=== PATIENT | male | born 1975 | race Caucasian/White ===

== ENCOUNTER 2017-02-20 06:06 | Observation (INO) | payer BC, OTHER ==
[~2017-02-20] VITALS: Ht 182.9 cm; Wt 65.4 kg
--- NOTE | ~2017-02-20 | H ---
[facility] [place] [address] HISTORY AND PHYSICAL Name: BLAIR ZABALA Room #: 431-P [facility] MKristi.#: [id number] Admission: 02/20/17 Attend Phys: Lisandro Krishnan MD Discharge: Date of : 77 Report #: [id number] THIS REPORT FOR: //name// CC: Lisandro De Leon DATE OF SERVICE: 02/20/2017 REASON FOR ADMISSION: Left flank pain. HISTORY OF PRESENT ILLNESS: The patient is a 41-year-old gentleman admitted with sudden onset left flank pain starting this morning, which awoke from sleep, radiating to his left groin. He has also had some mild associated nausea. He has really had no other symptoms associated with this. No hematuria. He denies skin rashes, diarrhea, chest pain, shortness of breath, headaches or other problems at this time. He is noted in the Emergency Room to have a large left-sided ureteral calculus and is being admitted for treatment of the same. PAST MEDICAL HISTORY: None reported. PAST SURGICAL HISTORY: None reported. ALLERGIES: Reported to FLEXERIL. MEDICATIONS: At home include diazepam p.r.n., fentanyl patch every 3 days and Wellbutrin. SOCIAL HISTORY: Active smoker 1 pack a day, intermittent social alcohol use, denies any drug use. 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 FAMILY HISTORY: Father had pancreatic cancer. Grandmother had breast cancer. Grandfather had Alzheimer disease. REVIEW OF SYSTEMS: Twelve-point review of systems performed, negative except as mentioned in history of present illness. PHYSICAL EXAMINATION: VITAL SIGNS: Afebrile, pulse 75, respiration rate of 14, O2 sat 97 on room air, blood pressure is 102/60. GENERAL: Awake, alert, in no acute distress. HEENT: Unremarkable. NECK: No JVD or thyromegaly. CARDIOVASCULAR: S1, S2 present. Regular present bilaterally. ABDOMEN: Soft, tender to palpation over the left flank. NEUROLOGICAL: Awake and alert times 3. SKIN: Unremarkable. No rash or lesions. [address] [address] HISTORY AND PHYSICAL Name: BLAIR ZABALA Room #: 431-P [facility] M.R.#: [id number] Admission: 02/20/17 Attend Phys: Lisandro Krishnan MD Discharge: Date of : 77 Report #: [id number] LABORATORY AND INVESTIGATIONS: Without concerning abnormalities. BRIEF INPATIENT COURSE: The patient is a 41-year-old gentleman admitted with left flank pain and noted to have a 6.5 mm obstructing proximal ureteric stone on the left with associated hydronephrosis. He has been assessed by Urology with plans for lithotripsy, possibly in the a.m. versus home discharge with outpatient followup for lithotripsy based on pain control. PLAN: At the present time, we will continue IV fluid hydration and attempt pain medications as able and assess his progress. DVT prophylaxis only with SCDs for the present in light of planned procedures. <ELECTRONICALLY SIGNED> By: Lisandro Krishnan MD 02/20/17 1347 1152 1215 Lisandro Krishnan MD /nt
[~2017-02-20 06:06] MED LIST: NOHOMEMEDICATIONS
[2017-02-20 06:07] VITALS: BP 125/84
[2017-02-20] MEDS ORDERED: FENTANYL PA12 MCG/H1 TP (06:25)
[2017-02-20] MEDS ORDERED: WELLBUTRIN SR150 MG PO (06:25)
[2017-02-20] MEDS ORDERED: VALIUM5 MG PO (06:25)
[2017-02-20 06:35] LABS: ABSOLUTE NEUTROPHILS 6.3 thou/uL (1.4-8.2); EOSINOPHILS 4.1 % (0.0-3.0); HEMATOCRIT 44.1 % (42.0-52.0); HEMOGLOBIN 14.9 gm/dL (14.0-18.0); MCH 30.3 pg (26.0-34.0); MCHC 33.8 g/dL (28.0-37.0); MCV 89.6 fL (80.0-100.0); MONOCYTES 8.3 % (1.0-8.0); PLATELET COUNT 241 thou/uL (150-400); POLYS 54.6 % (36.0-66.0); RBC 4.93 mil/uL (4.50-6.00); RDW 13.5 % (10.5-14.5); WBC 11.5 thou/uL (4.0-11.0)
[2017-02-20 06:41] LABS: MANUAL DIFF NO
[2017-02-20 06:45] LABS: CALCIUM 9.2 mg/dL (8.5-10.1); POTASSIUM 4.1 mmol/L (3.5-5.1)
[2017-02-20 06:50] LABS: ALBUMIN 3.9 g/dL (3.4-5.0); DIRECT BILIRUBIN 0.1 mg/dL (<0.1-0.3); TOTAL BILIRUBIN 0.6 mg/dL (<0.1-1.0)
[2017-02-20 08:39] VITALS: BP 110/69
[2017-02-20 08:52] LABS: URINE BILIRUBIN NEGATIVE (Negative); URINE BLOOD 3+ (Negative); URINE COLOR YELLOW; URINE GLUCOSE-RANDOM* NEGATIVE (Negative); URINE KETONES NEGATIVE (Negative); URINE NITRITE NEGATIVE (Negative); URINE PROTEIN (DIPSTICK) NEGATIVE (Negative); URINE SPECIFIC GRAVITY 1.025 (1.003-1.035); URINE UROBILINOGEN 0.2 E.U./dl (0.2-1.0)
[2017-02-20 09:15] LABS: CASTS None Seen /LPF (None Seen); CRYSTALS None Seen /LPF (None Seen); SQUAMOUS 0-3 Few /LPF (0-3)
[2017-02-20 09:16] VITALS: BP 102/60
[2017-02-20 09:16] LABS: BACTERIA 1-9 Few /HPF (None Seen); URINE RBC >20 Many /HPF (0-2); URINE WBC 0-5 Rare /HPF (0-5)
[2017-02-20] MEDS ORDERED: DILAUDID 2 MG TA2 MG PO (12:38)
[2017-02-20 16:15] VITALS: BP 108/70
[2017-02-20] MEDS ORDERED: ONDANSETRON HCL4 M2 PO (16:44)
[2017-02-20] MEDS ORDERED: FLOMAX0.4 MG PO (16:44)
[2017-02-20 17:27] VITALS: BP 108/70
[2017-02-20 18:13] VITALS: BP 108/70
[2017-02-22] MEDS ORDERED: LEVAQUIN 500 M500 M1 PO (14:33)
== END 2017-02-20 18:19 | disposition home or self-care (01) ==
LOC: ER 06:06 → EROBS 07:56 → 4E 07:56
PROVIDERS: Emergency Medicine
DX: N13.2 Hydronephrosis with renal and ureteral calculous obstruction (principal); D72.829 Elevated white blood cell count, unspecified; R11.0 Nausea; Z72.89 Other problems related to lifestyle; Z87.891 Personal history of nicotine dependence

== ENCOUNTER 2020-04-03 11:24 | Emergency (ER) | payer BC, OTHER ==
[~2020-04-03] VITALS: Ht 182.9 cm; Wt 74.8 kg
[~2020-04-03 11:24] MED LIST changes: +DILAUDID 2 MG TA2 MG PO; +FENTANYL PA12 MCG/H1 TP; +FLOMAX0.4 MG PO; +LEVAQUIN 500 M500 M1 PO; +ONDANSETRON HCL4 M2 PO; +VALIUM5 MG PO; +WELLBUTRIN SR150 MG PO
[2020-04-03 12:39] LABS: ABSOLUTE NEUTROPHILS 7.5 thou/uL (1.4-8.2); BASOPHILS 1.2 % (0.0-2.0); EOSINOPHILS 2.3 % (0.0-3.0); HEMATOCRIT 44.9 % (42.0-52.0); HEMOGLOBIN 15.1 gm/dL (14.0-18.0); LYMPHOCYTES 24.2 % (24.0-44.0); MCH 30.5 pg (26.0-34.0); MCHC 33.7 g/dL (28.0-37.0); MCV 90.5 fL (80.0-100.0); MONOCYTES 6.8 % (1.0-8.0); PLATELET COUNT 293 thou/uL (150-400); POLYS 65.5 % (36.0-66.0); RBC 4.96 mil/uL (4.50-6.00); RDW 14.3 % (10.5-14.5); WBC 11.4 thou/uL (4.0-11.0)
[2020-04-03 12:41] LABS: CALCIUM 8.9 mg/dL (8.5-10.1)
[2020-04-03 12:42] LABS: MAGNESIUM 2.1 mg/dL (1.8-2.4)
[2020-04-03 12:43] LABS: POTASSIUM 4.1 mmol/L (3.5-5.1)
[2020-04-03 13:34] VITALS: BP 117/75
--- NOTE | 2020-04-03 15:00 | EKG ---
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
== END 2020-04-03 13:34 | disposition home or self-care (01) ==
LOC: ER 11:24
PROVIDERS: Emergency Medicine
DX: B34.9 Viral infection, unspecified (principal); Z20.828 Contact with and (suspected) exposure to other viral communicable diseases; F41.9 Anxiety disorder, unspecified; Z87.442 Personal history of urinary calculi; Z79.899 Other long term (current) drug therapy; Z88.8 Allergy status to other drugs, medicaments and biological substances